=== PATIENT | female | born 1950 | race Caucasian/White ===

== ENCOUNTER 2019-10-07 08:47 | Outpatient (CLI) | payer MEDICARE, BC, SELFPAY ==
[2019-10-08 12:13] LABS: Adrenocorticotropic Hormone, P <5.0 pg/mL
== END 2019-10-07 09:07 ==
PROVIDERS: PCP Family Medicine; Visit Provider Internal Medicine Endocrinology, Diabetes & Metabolism
DX: C7A.8 Other malignant neuroendocrine tumors (principal)
CPT/HCPCS: 36415; 82533; 82024